=== PATIENT | female | born 1940 | race Two or more races ===

== ENCOUNTER 2024-05-12 17:07 | Emergency (ER) | payer MEDICAID, OTHER ==
[~2024-05-12] VITALS: Ht 147.3 cm; Wt 54.7 kg
[2024-05-12 17:36] VITALS: BP 128/60; PULSE 87; RESP 18; O2SAT 99
== END 2024-05-12 21:37 | disposition home or self-care (01) ==
LOC: ER 17:07
DX: S01.01XA Laceration without foreign body of scalp, initial encounter (principal); R51.9 Headache, unspecified; W18.39XA Other fall on same level, initial encounter; Y93.89 Activity, other specified; Y92.89 Other specified places as the place of occurrence of the external cause; Y99.8 Other external cause status
CPT/HCPCS: 12001; 70450; 72125